=== PATIENT | male | born 1990 ===

== ENCOUNTER 2016-06-08 17:37 | Emergency (ER) | payer MEDICARE, OTHER ==
[2016-06-08 17:37] VITALS: BMI 24.5
[2016-06-08 17:48] VITALS: BP 135/81; PULSE 124; RESP 20; TEMP 98.1; O2SAT 96
--- NOTE | 2016-06-08 18:29 | C.PDOC ---
History Of Present Illness 26 year old male with a long history of psychiatric disorders, presents to the ER with c/o rhinorrhea and a subjective fever for the last 2 days. Pt notes symptoms has decreased, but denies homicidal or suicidal ideation, vomiting, nausea, diarrhea, sore throat, or any other complaints. Pt denies taking medicine for complaint. Time Seen by Provider: 06/08/16 18:06 Chief Complaint (Nursing): Fever History Per: Patient History/Exam Limitations: no limitations Onset/Duration Of Symptoms: Days Current Symptoms Are (Timing): Still Present Associated Symptoms: Fever. denies: Sore Throat, Vomiting, Diarrhea Past Medical History Reviewed: Historical Data, Nursing Documentation, Vital Signs Vital Signs: Last Vital Signs Temp 98.1 F 06/08/16 17:44 Pulse 124 H 06/08/16 17:44 Resp 20 06/08/16 17:44 BP 135/81 06/08/16 17:44 Pulse Ox 96 06/08/16 20:15 - Medical History PMH: Anxiety, Asthma, Bipolar Disorder, Depression, Schizophrenia Surgical History: - [facility] Procedures FAMILY THERAPY (03/31/14) GROUP PSYCHOTHERAPY (05/18/16) INDIVID PSYCHOTHERAP NEC (05/31/14) INDIVIDUAL PSYCHOTHERAPY, BEHAVIORAL (05/18/16) INDIVIDUAL PSYCHOTHERAPY, COGNITIVE-BEHAVIORAL (12/16/15) INDIVIDUAL PSYCHOTHERAPY, SUPPORTIVE (07/08/15) INJECT/INFUSE NEC (01/08/14) OTHER GROUP THERAPY (05/31/14) PSYCHIA INTERV/EVAL NEC (03/20/14) Family History: States: Unknown Family Hx - Social History Hx Tobacco Use: Yes Hx Alcohol Use: No Hx Substance Use: Yes Review Of Systems Except As Marked, All Systems Reviewed And Found Negative. Constitutional: Positive for: Fever ENT: Positive for: Other (Rhinorrhea. Poor oral health) Psych: Negative for: Suicidal ideation Physical Exam - Physical Exam Appears: Non-toxic, No Acute Distress Skin: Warm, Dry Head: Atraumatic, Normacephalic Nose: Discharge (Clear Rhinorrhea) Teeth: Other (Multiple cavities) Throat: Normal, No Erythema, No Exudate Cardiovascular: Rhythm Regular Respiratory: Normal Breath Sounds, No Rales, No Rhonchi, No Wheezing ED Course And Treatment O2 Sat by Pulse Oximetry: 96 (Room air) Pulse Ox Interpretation: Normal Progress Note: On reassessment, patient is resting comfortably, and is in no acute distress. Patient was instructed to follow up with physician/clinic in 1- 2 days for further evaluation. Medical Decision Making Medical Decision Making: No indication for PES intervention Plan dc home symptomatic tx Clinic f/u Disposition Counseled Patient/Family Regarding: Diagnosis, Need For Followup - Disposition Disposition: HOME/ ROUTINE Disposition Time: 18:30 Condition: FAIR Prescriptions: Oxymetazoline 0.05% [Afrin 0.05%] 2 puff NS Q12H PRN #1 bottle PRN Reason: .nasal congestion Instructions: Viral Syndrome (ED) - Clinical Impression Clinical Impression: URI (upper respiratory infection) - Scribe Statement The provider has reviewed the documentation as recorded by the Scribe Ros montague All medical record entries made by the Scribe were at my direction and personally dictated by me. I have reviewed the chart and agree that the record accurately reflects my personal performance of the history, physical exam, medical decision making, and the department course for this patient. I have also personally directed, reviewed, and agree with the discharge instructions and disposition.
== END 2016-06-08 18:42 | disposition home or self-care (01) ==
LOC: C.ER 17:37
DX: J06.9 Acute upper respiratory infection, unspecified (principal); Z72.0 Tobacco use

== ENCOUNTER 2016-07-08 19:12 | Emergency (ER) | payer MEDICARE, OTHER, MEDICAID ==
[2016-07-08 19:13] VITALS: BMI 24.5
[2016-07-08 19:18] VITALS: BP 132/75; PULSE 78; RESP 20; TEMP 97.4; O2SAT 98
--- NOTE | 2016-07-08 19:27 | C.PDOC ---
History Of Present Illness The patient, a 26y/o male, presents to the ED via ambulance for psychiatric evaluation. Patient was involved in a verbal confrontation with his mother earlier today and police were called. The police referred patient to EMS and he now presents for further evaluation. Patient has a long history of schizophrenia and is currently in an outpatient psychiatric program with good compliance. Patient is calm and cooperative in the ED and denies suicidal/ homicidal ideation at this time. Time Seen by Provider: 07/08/16 19:23 Chief Complaint (Nursing): Psychiatric Evaluation History Per: Patient, EMS History/Exam Limitations: no limitations Onset/Duration Of Symptoms: Hrs Current Symptoms Are (Timing): Still Present Suicide/Self Injury Attempted (Context): None Associated Symptoms: denies: Suicidal Thoughts, Suicidal Plan Involuntary Hold By: None Recent travel outside of the [place]: No Additional History Per: Patient, EMS Past Medical History Reviewed: Historical Data, Nursing Documentation, Vital Signs Vital Signs: Last Vital Signs Temp 97.4 F L 07/08/16 19:14 Pulse 78 07/08/16 19:14 Resp 20 07/08/16 19:14 BP 132/75 07/08/16 19:14 Pulse Ox 98 07/08/16 19:40 - Medical History PMH: Anxiety, Asthma, Bipolar Disorder, Depression, Schizophrenia Denies: Diabetes, Hepatitis, HIV, HTN, Chronic Kidney Disease, Seizures, Sexually Transmitted Disease Surgical History: No Surg Hx - [facility] Procedures FAMILY THERAPY (03/31/14) GROUP PSYCHOTHERAPY (05/18/16) INDIVID PSYCHOTHERAP NEC (05/31/14) INDIVIDUAL PSYCHOTHERAPY, BEHAVIORAL (05/18/16) INDIVIDUAL PSYCHOTHERAPY, COGNITIVE-BEHAVIORAL (12/16/15) INDIVIDUAL PSYCHOTHERAPY, SUPPORTIVE (07/08/15) INJECT/INFUSE NEC (01/08/14) OTHER GROUP THERAPY (05/31/14) PSYCHIA INTERV/EVAL NEC (03/20/14) Family History: States: Unknown Family Hx - Social History Hx Tobacco Use: Yes Hx Alcohol Use: No Hx Substance Use: Yes - Immunization History Hx Tetanus Toxoid Vaccination: No Hx Influenza Vaccination: No Hx Pneumococcal Vaccination: No Review Of Systems Except As Marked, All Systems Reviewed And Found Negative. Psych: Positive for: Other (+psych evaluation ). Negative for: Suicidal ideation Physical Exam - Physical Exam Appears: Non-toxic, No Acute Distress, Other (calm and cooperative ) Skin: Normal Color, Warm, Dry Head: Atraumatic, Normacephalic Eye(s): bilateral: Normal Inspection, EOMI Oral Mucosa: Moist Neck: Supple Chest: Symmetrical, No Deformity, No Tenderness Cardiovascular: Rhythm Regular Respiratory: Normal Breath Sounds Extremity: Normal ROM, Capillary Refill (less than 2 seconds ) Neurological/Psych: Oriented x3, Normal Speech, Normal Cognition Gait: Steady ED Course And Treatment O2 Sat by Pulse Oximetry: 98 (on RA) Pulse Ox Interpretation: Normal Medical Decision Making Medical Decision Making: BASELINE Schizo, normal reaction to an argument w his Mom Declines eval and psych eval ok to d/c home. opt program already in place w [facility]. Disposition Doctor Will See Patient In The: Office Counseled Patient/Family Regarding: Studies Performed, Diagnosis - Disposition Referrals: [facility] [Outside] [facility] [Outside] Disposition: HOME/ ROUTINE Disposition Time: 19:27 Condition: GOOD Additional Instructions: avoid verbal and physical confrontation Follow-up in your outpatient psychiatric program as usual. Instructions: Schizophrenia (ED), Anxiety (ED) - Clinical Impression Clinical Impression: Schizophrenia - Scribe Statement The provider has reviewed the documentation as recorded by the Scribe (Paola Montana) Provider Attestation: All medical record entries made by the Scribe were at my direction and personally dictated by me. I have reviewed the chart and agree that the record accurately reflects my personal performance of the history, physical exam, medical decision making, and the department course for this patient. I have also personally directed, reviewed, and agree with the discharge instructions and disposition.
== END 2016-07-08 19:42 | disposition home or self-care (01) ==
LOC: C.ER 19:12
DX: F20.9 Schizophrenia, unspecified (principal)

== ENCOUNTER 2017-10-31 14:02 | Emergency (ER) | payer MEDICARE, OTHER ==
[2017-10-31 14:02] VITALS: BMI 25.0
[2017-10-31 14:44] LABS: BASO % 0.1 % (0.0-2.0); EOS # 0.1 K/uL (0.0-0.7); EOS % 1.4 % (0.0-4.0); HEMOGLOBIN 14.6 g/dL (12.0-18.0); LYMPH # 1.9 K/uL (1.0-4.3); LYMPH % 20.3 % (20.0-40.0); MEAN CELL VOLUME 92.6 fL (80.0-94.0); MEAN CORPUSCULAR HEMOGLOBIN 33.1 pg (27.0-31.0); MEAN CORPUSCULAR HGB CONC 35.7 g/dL (33.0-37.0); MEAN PLATELET VOLUME 8.9 fL (7.2-11.7); MONO # 0.9 K/uL (0.0-0.8); MONO % 9.6 % (0.0-10.0); NEUT # 6.4 K/uL (1.8-7.0); NEUT % 68.6 % (50.0-75.0); NRBC % 0.2 % (0.0-2.0); RBC 4.41 Mil/uL (4.40-5.90); RED CELL DISTRIBUTION WIDTH 13.6 % (11.5-14.5); WHITE BLOOD COUNT 9.3 K/uL (4.8-10.8)
[2017-10-31 14:52] LABS: URINE BILIRUBIN NEGATIVE (NEGATIVE); URINE BLOOD NEGATIVE (NEGATIVE); URINE CLARITY Clear (Clear); URINE COLOR Yellow (YELLOW); URINE GLUCOSE (UA) NORMAL (Normal); URINE LEUKOCYTE ESTERASE NEG Leu/uL (Negative); URINE PROTEIN NEGATIVE (NEGATIVE); URINE UROBILINOGEN NORMAL mg/dL (0.2-1.0)
[2017-10-31 14:58] LABS: ALB/GLOB RATIO 1.4 (1.0-2.1); ALBUMIN 4.3 g/dL (3.5-5.0); ALT/SGPT 37 U/L (21-72); AST/SGOT 22 U/L (17-59); BLOOD UREA NITROGEN 7 mg/dL (9-20); GFR AFRICAN-AMERICAN > 60; GFR NON-AFRICAN AMERICAN > 60
[2017-10-31 15:11] LABS: BARBITURATES, UR NEGATIVE (NEGATIVE); BENZODIAZEPINES, UR NEGATIVE (NEGATIVE); OPIATES, UR NEGATIVE (NEGATIVE); PHENCYCLIDINE, UR NEGATIVE (NEGATIVE)
--- NOTE | 2017-10-31 15:21 | C.PDOC ---
History Of Present Illness 27yo male with history of schizoaffective disorder, brought to ER by EMS accompanied by his mom as she states the patient was aggressive at home and threatened to kill her. Patient states he is in the ER as "they are trying to take me to the dentist." Patient does not answer questions when asked and is not able to provide and HPI or ROS. Time Seen by Provider: 10/31/17 14:09 Chief Complaint (Nursing): Psychiatric Evaluation History Per: Family History/Exam Limitations: clinical condition Past Medical History Reviewed: Historical Data, Nursing Documentation, Vital Signs Vital Signs: Last Vital Signs Temp 99.5 F 10/31/17 21:42 Pulse 109 H 10/31/17 21:42 Resp 20 10/31/17 21:42 BP 152/87 H 10/31/17 21:42 Pulse Ox 100 10/31/17 22:50 - Medical History PMH: Anxiety, Asthma, Bipolar Disorder, Depression, Schizophrenia Denies: Diabetes, Hepatitis, HIV, HTN, Chronic Kidney Disease, Seizures, Sexually Transmitted Disease Surgical History: No Surg Hx - [facility] Procedures FAMILY THERAPY (03/31/14) GROUP PSYCHOTHERAPY (05/18/16) INDIVID PSYCHOTHERAP NEC (05/31/14) INDIVIDUAL PSYCHOTHERAPY, BEHAVIORAL (05/18/16) INDIVIDUAL PSYCHOTHERAPY, COGNITIVE-BEHAVIORAL (12/16/15) INDIVIDUAL PSYCHOTHERAPY, SUPPORTIVE (07/08/15) INJECT/INFUSE NEC (01/08/14) OTHER GROUP THERAPY (05/31/14) PSYCHIA INTERV/EVAL NEC (03/20/14) Family History: States: Unknown Family Hx - Social History Hx Tobacco Use: Yes Hx Alcohol Use: Yes Hx Substance Use: Yes - Immunization History Hx Tetanus Toxoid Vaccination: No Hx Influenza Vaccination: No Hx Pneumococcal Vaccination: No Review Of Systems Review Of Systems: ROS cannot be obtained secondary to pt's inabilty to answer questions. Physical Exam - Physical Exam Appears: Non-toxic Skin: Normal Color Head: Atraumatic, Normacephalic Eye(s): bilateral: Normal Inspection Neck: Normal ROM, Supple Chest: Symmetrical Cardiovascular: Rhythm Regular Respiratory: Normal Breath Sounds Extremity: Normal ROM Neurological/Psych: Oriented x3, Other (flat affect; not answering questions) ED Course And Treatment - Laboratory Results Result Diagrams: 10/31/17 14:40 10/31/17 14:40 Lab Interpretation: No Acute Changes O2 Sat by Pulse Oximetry: 100 (RA) Pulse Ox Interpretation: Normal Progress Note: Patient remains quiet and stable in ED. He will remain in the ED overnight for evaluation by clinician from [facility] in the morning. Medical Decision Making Medical Decision Making: Plan: * Labs * Urinalysis * UDS * 1:1 observation Disposition - Disposition Disposition Time: 00:45 Condition: STABLE Forms: [facility] (Iranian) - Clinical Impression Clinical Impression: Schizoaffective disorder, Oppositional defiant disorder - Scribe Statement The provider has reviewed the documentation as recorded by the Rosaurae Brooklyn Delgado Provider Attestation: All medical record entries made by the Ferminibe were at my direction and personally dictated by me. I have reviewed the chart and agree that the record accurately reflects my personal performance of the history, physical exam, medical decision making, and the department course for this patient. I have also personally directed, reviewed, and agree with the discharge instructions and disposition. Physician Patient Turnover Patient Signed Over To: Lisandra Marmolejo Handoff Comments: pending evaluation by clinician from [facility].
[2017-11-01 10:54] VITALS: RESP 16; O2SAT 97
[2017-11-01 14:39] VITALS: BP 115/76; PULSE 76; TEMP 98.4
== END 2017-11-01 14:20 | disposition home or self-care (01) ==
LOC: C.ER 14:02
DX: F25.9 Schizoaffective disorder, unspecified (principal); F91.3 Oppositional defiant disorder; F84.0 Autistic disorder
CPT/HCPCS: 80053; 81001; 85025; 99285; G0480

== ENCOUNTER 2017-11-03 14:06 | Emergency (ER) | payer MEDICARE, OTHER ==
[2017-11-03 14:06] VITALS: BMI 25.0
== END 2017-11-03 14:45 | disposition left against medical advice (07) ==
LOC: C.ER 14:06
DX: Z02.89 Encounter for other administrative examinations (principal)

== ENCOUNTER 2017-12-23 10:00 | Emergency (ER) | payer MEDICARE, OTHER ==
[2017-12-23 10:00] VITALS: BMI 25.0
[2017-12-23 10:09] VITALS: RESP 20; O2SAT 98
--- NOTE | 2017-12-23 10:29 | C.PDOC ---
History Of Present Illness 27 year old male with PMHx of autism presents to the ED BIBA for aggressive behavior. As per mother, she called 911 because patient was acting aggressive at home. When patient was asked why he came to the ED, he stated he hates medication. He denies any physical complaints. Chief Complaint (Nursing): Psychiatric Evaluation History Per: Patient, Family (Mother) History/Exam Limitations: no limitations Onset/Duration Of Symptoms: Hrs Current Symptoms Are (Timing): Gone Suicide/Self Injury Attempted (Context): None Modifying Factor(s): None Associated Symptoms: Agitation Additional History Per: EMS Past Medical History Reviewed: Historical Data, Nursing Documentation, Vital Signs Vital Signs: Last Vital Signs Temp 98.6 F 12/23/17 10:04 Pulse 98 H 12/23/17 10:04 Resp 20 12/23/17 10:04 BP 131/86 12/23/17 10:04 Pulse Ox 98 12/23/17 10:04 - Medical History PMH: Anxiety, Asthma, Bipolar Disorder, Depression, Schizophrenia Denies: Diabetes, Hepatitis, HIV, HTN, Chronic Kidney Disease, Seizures, Sexually Transmitted Disease Surgical History: No Surg Hx - [facility] Procedures FAMILY THERAPY (03/31/14) GROUP PSYCHOTHERAPY (05/18/16) INDIVID PSYCHOTHERAP NEC (05/31/14) INDIVIDUAL PSYCHOTHERAPY, BEHAVIORAL (05/18/16) INDIVIDUAL PSYCHOTHERAPY, COGNITIVE-BEHAVIORAL (12/16/15) INDIVIDUAL PSYCHOTHERAPY, SUPPORTIVE (07/08/15) INJECT/INFUSE NEC (01/08/14) OTHER GROUP THERAPY (05/31/14) PSYCHIA INTERV/EVAL NEC (03/20/14) Family History: States: Unknown Family Hx - Social History Hx Tobacco Use: Yes Hx Alcohol Use: No Hx Substance Use: No - Immunization History Hx Tetanus Toxoid Vaccination: No Hx Influenza Vaccination: No Hx Pneumococcal Vaccination: No Review Of Systems Except As Marked, All Systems Reviewed And Found Negative. Psych: Positive for: Other (aggressive behavior ) Physical Exam - Physical Exam Appears: Non-toxic, Other (Calm ) Skin: Warm, Dry Head: Normacephalic Eye(s): bilateral: Normal Inspection Nose: Normal Oral Mucosa: Moist Neck: Normal ROM Chest: Symmetrical Cardiovascular: Rhythm Regular Respiratory: Normal Breath Sounds Extremity: Bilateral: Atraumatic, Normal Color And Temperature, Normal ROM Neurological/Psych: Oriented x3, Normal Speech Gait: Steady ED Course And Treatment O2 Sat by Pulse Oximetry: 98 (RA) Pulse Ox Interpretation: Normal Medical Decision Making Medical Decision Making: Impression: Autism with aggressive behavior Orders: Psych evaluation Disposition - Disposition Referrals: [facility] [place]] [facility] [Outside] [facility] [place] [Outside] Disposition: HOME/ ROUTINE Disposition Time: 13:22 Condition: GOOD Instructions: Autism Spectrum Disorder Forms: [facility] (Tajik) - Clinical Impression Clinical Impression: Autism - Scribe Statement The provider has reviewed the documentation as recorded by the Scribe Lena Noble All medical record entries made by the Scribe were at my direction and personally dictated by me. I have reviewed the chart and agree that the record accurately reflects my personal performance of the history, physical exam, medical decision making, and the department course for this patient. I have also personally directed, reviewed, and agree with the discharge instructions and disposition.
[2017-12-23 12:36] VITALS: BP 135/85; PULSE 89; TEMP 97.9
== END 2017-12-23 13:21 | disposition home or self-care (01) ==
LOC: C.ER 10:00
DX: F84.0 Autistic disorder (principal)

== ENCOUNTER 2017-12-24 14:13 | Emergency (ER) | payer MEDICARE, OTHER ==
[2017-12-24 14:14] VITALS: BMI 25.0
== END 2017-12-24 15:23 | disposition left against medical advice (07) ==
LOC: C.ER 14:13
DX: Z02.89 Encounter for other administrative examinations (principal); F41.9 Anxiety disorder, unspecified

== ENCOUNTER 2018-01-01 10:22 | Emergency (ER) | payer MEDICARE, OTHER ==
[2018-01-01 10:22] VITALS: BMI 25.0
--- NOTE | 2018-01-01 10:56 | C.PDOC ---
History Of Present Illness 12/23/17 20:05 --Patient was evaluated by crisis. Diagnoses are autism spectrum disorder and schizoaffective disorder as per Dr. Harmon. Time Seen by Provider: 01/01/18 10:55 Chief Complaint (Nursing): Psychiatric Evaluation Past Medical History Vital Signs: Last Vital Signs Temp 98.7 F 01/01/18 10:42 Pulse 99 H 01/01/18 10:42 Resp 17 01/01/18 10:42 BP 115/78 01/01/18 10:42 Pulse Ox 100 01/01/18 10:42 - Medical History PMH: Anxiety, Asthma, Bipolar Disorder, Depression, Schizophrenia Denies: Diabetes, Hepatitis, HIV, HTN, Chronic Kidney Disease, Seizures, Sexually Transmitted Disease Surgical History: - [facility] Procedures FAMILY THERAPY (03/31/14) GROUP PSYCHOTHERAPY (05/18/16) INDIVID PSYCHOTHERAP NEC (05/31/14) INDIVIDUAL PSYCHOTHERAPY, BEHAVIORAL (05/18/16) INDIVIDUAL PSYCHOTHERAPY, COGNITIVE-BEHAVIORAL (12/16/15) INDIVIDUAL PSYCHOTHERAPY, SUPPORTIVE (07/08/15) INJECT/INFUSE NEC (01/08/14) OTHER GROUP THERAPY (05/31/14) PSYCHIA INTERV/EVAL NEC (03/20/14) Family History: States: Unknown Family Hx - Social History Hx Tobacco Use: Yes Hx Alcohol Use: Yes Hx Substance Use: Yes - Immunization History Hx Tetanus Toxoid Vaccination: No Hx Influenza Vaccination: No Hx Pneumococcal Vaccination: No ED Course And Treatment O2 Sat by Pulse Oximetry: 100 Progress - Data Reviewed Data Reviewed: Old records Disposition - Disposition
[2018-01-01 12:30] LABS: BASO % 0.2 % (0.0-2.0); EOS # 0.1 K/uL (0.0-0.7); EOS % 1.3 % (0.0-4.0); HEMOGLOBIN 15.8 g/dL (12.0-18.0); LYMPH # 2.6 K/uL (1.0-4.3); LYMPH % 24.4 % (20.0-40.0); MEAN CELL VOLUME 93.3 fL (80.0-94.0); MEAN CORPUSCULAR HEMOGLOBIN 32.5 pg (27.0-31.0); MEAN CORPUSCULAR HGB CONC 34.8 g/dL (33.0-37.0); MEAN PLATELET VOLUME 8.8 fL (7.2-11.7); MONO # 1.1 K/uL (0.0-0.8); MONO % 10.3 % (0.0-10.0); NEUT # 6.8 K/uL (1.8-7.0); NEUT % 63.8 % (50.0-75.0); RBC 4.86 Mil/uL (4.40-5.90); RED CELL DISTRIBUTION WIDTH 13.5 % (11.5-14.5); WHITE BLOOD COUNT 10.6 K/uL (4.8-10.8)
[2018-01-01 12:42] LABS: ALB/GLOB RATIO 1.3 (1.0-2.1); ALBUMIN 4.9 g/dL (3.5-5.0); ALT/SGPT 30 U/L (21-72); AST/SGOT 30 U/L (17-59); BLOOD UREA NITROGEN 11 mg/dL (9-20); CALCIUM 9.2 mg/dl (8.6-10.4); GFR NON-AFRICAN AMERICAN > 60
--- NOTE | 2018-01-01 13:14 | C.PDOC ---
History Of Present Illness 27 y/o male with PMHx of schizophrenia and bipolar disorder brought in by ambulance accompanied by mother for psych evaluation. As per mother patient has been having combative episodes, with increased aggression, throwing objects at home. Mom reports that patients medication was changed recently and does not work as well as previous one. Mom also noticed some tremors for the past few weeks. Currently he is taking Haldol 10 mg daily, last dose was last night. At present time, patient appears comfortable, cooperative, in no apparent distress. Time Seen by Provider: 01/01/18 10:55 Chief Complaint (Nursing): Psychiatric Evaluation History Per: Patient History/Exam Limitations: no limitations Onset/Duration Of Symptoms: Days Current Symptoms Are (Timing): Still Present Modifying Factor(s): None Involuntary Hold By: None Additional History Per: Family (Mother) Past Medical History Reviewed: Historical Data, Nursing Documentation, Vital Signs Vital Signs: Last Vital Signs Temp 98.7 F 01/01/18 10:42 Pulse 99 H 01/01/18 10:42 Resp 17 01/01/18 10:42 BP 115/78 01/01/18 10:42 Pulse Ox 100 01/01/18 10:42 - Medical History PMH: Anxiety, Asthma, Bipolar Disorder, Depression, Schizophrenia Denies: Diabetes, Hepatitis, HIV, HTN, Chronic Kidney Disease, Seizures, Sexually Transmitted Disease Surgical History: - [facility] Procedures FAMILY THERAPY (03/31/14) GROUP PSYCHOTHERAPY (05/18/16) INDIVID PSYCHOTHERAP NEC (05/31/14) INDIVIDUAL PSYCHOTHERAPY, BEHAVIORAL (05/18/16) INDIVIDUAL PSYCHOTHERAPY, COGNITIVE-BEHAVIORAL (12/16/15) INDIVIDUAL PSYCHOTHERAPY, SUPPORTIVE (07/08/15) INJECT/INFUSE NEC (01/08/14) OTHER GROUP THERAPY (05/31/14) PSYCHIA INTERV/EVAL NEC (03/20/14) Family History: States: Unknown Family Hx - Social History Hx Tobacco Use: Yes Hx Alcohol Use: Yes Hx Substance Use: Yes - Immunization History Hx Tetanus Toxoid Vaccination: No Hx Influenza Vaccination: No Hx Pneumococcal Vaccination: No Review Of Systems Except As Marked, All Systems Reviewed And Found Negative. Constitutional: Negative for: Fever Respiratory: Negative for: Shortness of Breath Gastrointestinal: Negative for: Vomiting, Abdominal Pain Neurological: Negative for: Weakness, Dizziness Psych: Positive for: Other (Increased aggression/combative episodes). Negative for: Suicidal ideation (or homicidal) Physical Exam - Physical Exam Appears: Well, Non-toxic, No Acute Distress Skin: Normal Color, Warm, No Rash, No Ecchymosis Head: Normacephalic Eye(s): bilateral: PERRL Nose: No Flaring, No Discharge Oral Mucosa: Moist Throat: No Erythema, No Drooling Neck: Trachea Midline, Supple Chest: Symmetrical, No Deformity, No Tenderness Cardiovascular: Rhythm Regular, No Murmur, No JVD Respiratory: No Decreased Breath Sounds, No Accessory Muscle Use, No Rales, No Rhonchi, No Stridor, No Wheezing Gastrointestinal/Abdominal: Soft, No Tenderness, No Distention Extremity: Normal ROM, No Deformity, No Swelling Extremity: Bilateral: Atraumatic, Normal Color And Temperature, Normal ROM Neurological/Psych: Oriented x3, Normal Speech, Normal Motor, Normal Sensation, Normal Reflexes Gait: Steady ED Course And Treatment - Laboratory Results Result Diagrams: 01/01/18 12:18 01/01/18 12:18 Lab Interpretation: No Acute Changes O2 Sat by Pulse Oximetry: 100 (RA) Pulse Ox Interpretation: Normal Progress Note: Blood work and urine sent. pony worker will see patient and evaluate. Pt was OBS in ED for 4 hours and remained tsable during the ED evaluation. Blood work review and appears normal. Pt was seen by Crisis, case discussed with [id number] and patient was psychiatricaly cleared for discharge and outpt follow up now. As per crisis, " mom refused to sign paper but patient will be follow up by outpt services/with home visits". Pt is stable for discharge. Disposition Counseled Patient/Family Regarding: Studies Performed, Diagnosis, Need For Followup - Disposition [facility] [[facility]] Disposition: HOME/ ROUTINE Disposition Time: 16:55 Condition: STABLE Additional Instructions: Follow up with Psychiatrist in as scheduled for further evaluation and treatment return if any new changes. Instructions: Schizoaffective Disorder Forms: [facility] (Finnish) - Clinical Impression Clinical Impression: Schizoaffective disorder, bipolar type - PA / SALES AGENT [employer] REPORT SERVICE / Resident Statement MD/DO has reviewed & agrees with the documentation as recorded. - Scribe Statement The provider has reviewed the documentation as recorded by the Scribe (Lorraine Jensen) All medical record entries made by the Scribe were at my direction and personally dictated by me. I have reviewed the chart and agree that the record accurately reflects my personal performance of the history, physical exam, medical decision making, and the department course for this patient. I have also personally directed, reviewed, and agree with the discharge instructions and disposition.
[2018-01-01 14:36] LABS: URINE BILIRUBIN NEGATIVE (NEGATIVE); URINE BLOOD NEGATIVE (NEGATIVE); URINE CLARITY Clear (Clear); URINE COLOR Yellow (YELLOW); URINE GLUCOSE (UA) NORMAL (Normal); URINE LEUKOCYTE ESTERASE NEG Leu/uL (Negative); URINE PROTEIN NEGATIVE (NEGATIVE); URINE UROBILINOGEN NORMAL mg/dL (0.2-1.0)
[2018-01-01 14:50] LABS: BARBITURATES, UR NEGATIVE (NEGATIVE); BENZODIAZEPINES, UR NEGATIVE (NEGATIVE); OPIATES, UR NEGATIVE (NEGATIVE)
[2018-01-01 15:32] VITALS: RESP 16
[2018-01-01 16:17] LABS: PHENCYCLIDINE, UR NEGATIVE (NEGATIVE)
[2018-01-01 17:44] VITALS: BP 111/77; PULSE 95; TEMP 99.4; O2SAT 98
== END 2018-01-01 18:06 | disposition home or self-care (01) ==
LOC: C.ER 10:22
DX: F25.0 Schizoaffective disorder, bipolar type (principal)
CPT/HCPCS: 80053; 81001; 83735; 84100; 85025; 99285; G0480

== ENCOUNTER 2018-01-15 18:19 | Emergency (ER) | payer MEDICARE, OTHER ==
[2018-01-15 18:19] VITALS: BMI 25.0
[2018-01-15 18:34] VITALS: BP 131/84; PULSE 104; RESP 18; TEMP 97.8; O2SAT 100
== END 2018-01-15 18:36 | disposition left against medical advice (07) ==
LOC: C.ER 18:19
DX: Z02.89 Encounter for other administrative examinations (principal); Z00.8 Encounter for other general examination

== ENCOUNTER 2018-01-15 20:56 | Inpatient (IN) | payer MEDICARE, OTHER ==
[2018-01-15 20:56] VITALS: BMI 25.0
--- NOTE | 2018-01-15 22:47 | C.PDOC ---
History Of Present Illness 27 y/o autistic male, with a PMHx of schizoaffective disorder, brought in by mother for aggressive behavior. Mom notes patient has had an increasing number of aggressive episodes over the last month. He was recently admitted for similar symptoms to [facility] unit and discharged yesterday. However, mom states patient became aggressive again, prompting mom to bring him back to the ED. Patient denies any suicidal or homicidal ideation. He reports having a mild cough. Mom states that patient always mentions physical complaints and denies any psychiatric complaints. History mostly obtained via mother secondary to patients somewhat lack of cooperation. <Viky Brown - Last Filed: 01/16/18 16:21> <Kelsey Light - Last Filed: 01/16/18 04:43> History Per: Patient History/Exam Limitations: other (somewhat uncooperative) Onset/Duration Of Symptoms: Days, Intermittent Episodes Current Symptoms Are (Timing): Still Present Associated Symptoms: Agitation Additional History Per: Family (Mother) <Viky Brown - Last Filed: 01/16/18 16:21> Time Seen by Provider: 01/15/18 21:04 Chief Complaint (Nursing): Psychiatric Evaluation Past Medical History Vital Signs: Last Vital Signs Temp 99.0 F 01/16/18 01:00 Pulse 82 01/16/18 01:00 Resp 20 01/16/18 01:00 BP 122/81 01/16/18 01:00 Pulse Ox 100 01/16/18 01:00 - [facility] Procedures FAMILY THERAPY (03/31/14) GROUP PSYCHOTHERAPY (01/10/18) INDIVID PSYCHOTHERAP NEC (05/31/14) INDIVIDUAL PSYCHOTHERAPY, BEHAVIORAL (05/18/16) INDIVIDUAL PSYCHOTHERAPY, COGNITIVE-BEHAVIORAL (01/10/18) INDIVIDUAL PSYCHOTHERAPY, SUPPORTIVE (07/08/15) INJECT/INFUSE NEC (01/08/14) OTHER GROUP THERAPY (05/31/14) PSYCHIA INTERV/EVAL NEC (03/20/14) <Kelsey Light - Last Filed: 01/16/18 04:43> Reviewed: Historical Data, Nursing Documentation, Vital Signs Vital Signs: Last Vital Signs Temp Pulse 116 H 01/15/18 21:06 Resp 20 01/15/18 21:00 BP 129/83 01/15/18 21:06 Pulse Ox 95 01/15/18 21:06 - Medical History PMH: Anxiety, Asthma, Bipolar Disorder, Depression, Hypothyroidism, Schizophrenia Denies: Diabetes, Hepatitis, HIV, HTN, Chronic Kidney Disease, Seizures, Sexually Transmitted Disease Other PMH: Autism Surgical History: No Surg Hx - [facility] Procedures FAMILY THERAPY (03/31/14) GROUP PSYCHOTHERAPY (01/10/18) INDIVID PSYCHOTHERAP NEC (05/31/14) INDIVIDUAL PSYCHOTHERAPY, BEHAVIORAL (05/18/16) INDIVIDUAL PSYCHOTHERAPY, COGNITIVE-BEHAVIORAL (01/10/18) INDIVIDUAL PSYCHOTHERAPY, SUPPORTIVE (07/08/15) INJECT/INFUSE NEC (01/08/14) OTHER GROUP THERAPY (05/31/14) PSYCHIA INTERV/EVAL NEC (03/20/14) Family History: States: No Known Family Hx - Social History Hx Tobacco Use: Yes Hx Alcohol Use: Yes Hx Substance Use: Yes - Immunization History Hx Tetanus Toxoid Vaccination: No Hx Influenza Vaccination: No Hx Pneumococcal Vaccination: No <Viky Brown - Last Filed: 01/16/18 16:21> Review Of Systems Except As Marked, All Systems Reviewed And Found Negative. Constitutional: Negative for: Fever Cardiovascular: Negative for: Chest Pain Respiratory: Positive for: Cough. Negative for: Shortness of Breath Gastrointestinal: Positive for: Abdominal Pain. Negative for: Vomiting, Diarrhea Psych: Positive for: Other (Aggressive episodes). Negative for: Suicidal ideation (or homicidal) <Viky Brown - Last Filed: 01/16/18 16:21> Physical Exam - Physical Exam Appears: Non-toxic, No Acute Distress Skin: Warm, Dry Head: Atraumatic, Normacephalic Eye(s): bilateral: Normal Inspection Oral Mucosa: Moist Throat: No Erythema, No Exudate Neck: Normal ROM Chest: Symmetrical Cardiovascular: Rhythm Regular, No Murmur Respiratory: Normal Breath Sounds (Lungs clear bilaterally), No Rales, No Rhonchi, No Wheezing Gastrointestinal/Abdominal: Soft, No Tenderness, No Distention Extremity: Bilateral: Atraumatic, Normal Color And Temperature, Normal ROM Neurological/Psych: Oriented x3, Normal Motor, Normal Sensation, Other (Angry mood and affect) <Viky Brown - Last Filed: 01/16/18 16:21> ED Course And Treatment O2 Sat by Pulse Oximetry: 95 (RA) Pulse Ox Interpretation: Normal <Viky Brown - Last Filed: 01/16/18 16:21> Medical Decision Making Medical Decision Making: Patient evaluated by crisis, to be admitted to Dr. Powers, dx: autism spectrum <Kelsey Light - Last Filed: 01/16/18 04:43> Medical Decision Making: Impression: Aggressive behavior, Autism Plan: Labs from yesterday at [facility] reviewed, and were normal. Patient is medically stable for psychiatric eval and admission as necessary. Placed patient on 1:1 observation, awaiting crisis evaluation. <Viky Brown - Last Filed: 01/16/18 16:21> Disposition - Disposition Disposition Time: 04:20 <Kelsey Light - Last Filed: 01/16/18 04:43> <Viky Brown - Last Filed: 01/16/18 16:21> - Disposition Disposition: HOSPITALIZED Condition: GOOD - Clinical Impression Clinical Impression: Autism spectrum - Scribe Statement The provider has reviewed the documentation as recorded by the Kathleen Jensen Provider Attestation: All medical record entries made by the Ferminibe were at my direction and personally dictated by me. I have reviewed the chart and agree that the record accurately reflects my personal performance of the history, physical exam, medical decision making, and the department course for this patient. I have also personally directed, reviewed, and agree with the discharge instructions and disposition. <Viky Brown - Last Filed: 01/16/18 16:21> Physician Patient Turnover Patient Signed Over To: Kelsey Light Handoff Comments: Pending Crisis disposition <Viky Brown - Last Filed: 01/16/18 16:21>
--- NOTE | 2018-01-16 06:43 | PCM.BM ---
<Richard Helm - Last Filed: 01/16/18 06:41> Treatment Plan Problems - Problems identified on initial assessmt AGGRESSIVE BEHAVIOR Date Initiated: 01/16/18 Time Initiated: 06:10 Assessment reference: NA Status: Active Treatment assets and liabiliti Patient Assests: ADL independent, good support system Patient Liabilities: other (Patient is autistic. Seletively mute during assessment.) - Milieu Protocol Maintain good personal hygiene: daily Encourage regular showers, daily Remind patient to perform daily oral care, daily Assist patient to perform ADL's Maintain personal safety: every shift Educate patient to report safety concerns to staff, every shift Monitor environment for contraband/sharps Medication safety: Monitor for expected outcome, potential side effects: every shift, Assess barriers to learning: every shift, Assess readiness for medication education: every shift <Heldaio Gibbs - Last Filed: 01/16/18 12:21> - Diagnosis (1) Autism spectrum disorder Status: Acute Interventions: 01/16/18 12:21 * Assess/adjust medications daily and /or as needed * See patient on an individual basis 7x/week to assess symptoms of anxiety * Educate patient regarding benefits, side effects and risks of prescribed medications * <Susanne Orellana - Last Filed: 01/18/18 12:12> Family Contact Family involvement: Family/SO is involved Family contact: Telephone contact initiated by staff - Goals for Treatment Patient goals for treatment: Pt refused to attend meeting. Patient's family/SO goals for treatment: Patient's mother wants pt to attend DDD program at [facility] and patient's mother has guardianship over pt's care. Discharge/Continuing Care - Education Needs Education Needs: Patient Medication, Patient Diagnosis/Disease Process, Patient Coping Skills, Patient Placement options, Patient Community resources - Discharge Discharge Criteria: Free of agitation, Reduction of target symptoms Discharge to:: Home, With Family - Treatment Team Participation Discussed with Family/SO: Yes Was Patient/Family/SO present at Treatment Team Meeting: No (Patient refused to attend meeting)
--- NOTE | 2018-01-16 08:40 | RAD ---
Date of service: 01/15/2018 HISTORY: cough COMPARISON: Comparison chest 07/01/2025. FINDINGS: LUNGS: No active pulmonary disease. PLEURA: No significant pleural effusion identified, no pneumothorax apparent. CARDIOVASCULAR: Normal. OSSEOUS STRUCTURES: No significant abnormalities. VISUALIZED UPPER ABDOMEN: Normal. OTHER FINDINGS: None. IMPRESSION: No active disease.
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
--- NOTE | 2018-01-16 11:28 | CARD ---
APPROVED REPORT Date of service: 01/16/2018 EKG Measurement Heart [id number] <Conclusion> Normal sinus rhythm Normal ECG
[2018-01-16] MEDS: Divalproex 500 mg DR Tab PO SCH ×2 (11:53→17:46)
[2018-01-16] MEDS ORDERED: DiphenhydrAMINE 50 mg/ml Inj IM PRN (15:25)
[2018-01-17] MEDS: Levothyroxine 50 MCG TAB PO SCH (06:29)
[2018-01-17] MEDS: Divalproex 500 mg DR Tab PO SCH ×2 (09:57→17:41)
--- NOTE | 2018-01-17 10:42 | PCM.PYCHPN ---
Psychiatric Progress Note - Psychiatric Progress Note Patient seen today, length of contact: 16 min Patient Chief Complaint: I'm feeling okay. Problems Identified/Issues Discussed: Patient seen and evaluated, chart reviewed and discussed with the nurse. Pt remained somewhat slow, disorganized and internally preoccupied. He remained isolated and withdrawn, and confined to his room. As pe the staff, he remained calm and cooperative. Patient denies any auditory hallucinations, visual hallucinations, or any paranoia. Patient is compliant with medications and denies any side effects. Symptoms are improving but pt needs more time to stabilize. Support and psychoeducation given. Medication Change: Yes Medical Record Reviewed: Yes Mental Status Examination - Cognitive Function Orientation: Person, Place Memory: Impaired Attention: WNL Concentration: Poor Association: Loose Fund of Knowledge: WNL - Mood Mood: Anxious - Affect Affect: Constricted - Speech Speech: Soft - Formal Thought Process Formal Thought Process: Loosening of associations - Suicidal Ideation Suicidal Ideation: No - Homicidal Ideation Homicidal Ideation: No Goal/Treatment Plan - Goal/Treatment Plan Need for Continued Stay: Severe depression anxiety, Severe functional impairment Progress Toward Problem(s) and Goals/Treatment Plan: Schizoaffective disorder bipolar type Autistic spectrum disorder CBT Psychoeducation Supportive therapy, group therapy Depakote 500 mg by mouth twice a day Prolixin 5 mg by mouth twice a day Cogentin 1 mg by mouth twice a day Neurontin 300 mg by mouth 3 times a day Trazodone 50 mg by mouth daily at bedtime Klonopin 1 mg by mouth 3 times a day - Smoking Cessation Smoking Cessation Initiated: No
[2018-01-18] MEDS: Levothyroxine 50 MCG TAB PO SCH (06:14)
[2018-01-18] MEDS: Divalproex 500 mg DR Tab PO SCH ×2 (10:03→17:12)
[2018-01-19] MEDS: Levothyroxine 50 MCG TAB PO SCH (06:40)
[2018-01-19 06:50] VITALS: O2SAT 98
[2018-01-19] MEDS: Divalproex 500 mg DR Tab PO SCH ×2 (09:09→17:13)
[2018-01-20] MEDS: Levothyroxine 50 MCG TAB PO SCH (06:52)
[2018-01-20] MEDS: Divalproex 500 mg DR Tab PO SCH ×2 (09:25→17:35)
[2018-01-21] MEDS: Levothyroxine 50 MCG TAB PO SCH (06:17)
[2018-01-21] MEDS: Divalproex 500 mg DR Tab PO SCH ×2 (10:09→17:11)
[2018-01-22] MEDS: Levothyroxine 50 MCG TAB PO SCH (06:47)
[2018-01-22 07:21] VITALS: RESP 20; TEMP 97.5
[2018-01-22] MEDS: Divalproex 500 mg DR Tab PO SCH (10:04)
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
[2018-01-22 12:18] VITALS: BP 104/70; PULSE 96
== END 2018-01-22 13:15 | disposition home or self-care (01) | DRG 885 ==
LOC: C.ER 20:56 → C.5E 01-16 04:19
DX: F25.0 Schizoaffective disorder, bipolar type (principal); F84.0 Autistic disorder; E03.9 Hypothyroidism, unspecified; J45.909 Unspecified asthma, uncomplicated; Z87.891 Personal history of nicotine dependence

== ENCOUNTER 2018-03-02 15:09 | Emergency (ER) | payer MEDICARE, OTHER ==
[2018-03-02 15:10] VITALS: BMI 34.7
[2018-03-02 15:16] VITALS: BP 123/82; PULSE 99; TEMP 99.3; O2SAT 99
[2018-03-02 15:20] VITALS: RESP 17
--- NOTE | 2018-03-02 16:01 | C.PDOC ---
History Of Present Illness 28 y/o male pt with psych hx came in for evaluation in the ER. Pt reports he is not going to talk much and geo refusing to give more information. Crisis was called and they want a 1:1. Labs is suggested from crisis. Time Seen by Provider: 03/02/18 15:39 Chief Complaint (Nursing): Psychiatric Evaluation History Per: Patient History/Exam Limitations: other (refuse to give information) Onset/Duration Of Symptoms: Days Current Symptoms Are (Timing): Still Present Past Medical History Reviewed: Historical Data, Nursing Documentation, Vital Signs Vital Signs: Last Vital Signs Temp 99.3 F 03/02/18 15:16 Pulse 99 H 03/02/18 15:16 Resp 17 03/02/18 15:16 BP 123/82 03/02/18 15:16 Pulse Ox 99 03/02/18 15:16 - Medical History PMH: Anxiety, Asthma, Bipolar Disorder, Depression, Hypothyroidism, Schizophrenia Surgical History: - [facility] Procedures FAMILY THERAPY (03/31/14) GROUP PSYCHOTHERAPY (01/10/18) INDIVID PSYCHOTHERAP NEC (05/31/14) INDIVIDUAL PSYCHOTHERAPY, BEHAVIORAL (05/18/16) INDIVIDUAL PSYCHOTHERAPY, COGNITIVE-BEHAVIORAL (01/10/18) INDIVIDUAL PSYCHOTHERAPY, SUPPORTIVE (07/08/15) INJECT/INFUSE NEC (01/08/14) OTHER GROUP THERAPY (05/31/14) PSYCHIA INTERV/EVAL NEC (03/20/14) Family History: States: Unknown Family Hx - Social History Hx Tobacco Use: Yes Hx Alcohol Use: Yes Hx Substance Use: No - Immunization History Hx Tetanus Toxoid Vaccination: (unk) Hx Influenza Vaccination: (unk) Hx Pneumococcal Vaccination: (unk) Review Of Systems Except As Marked, All Systems Reviewed And Found Negative. Review Of Systems: ROS cannot be obtained secondary to pt's inabilty to answer questions. (refuse to speak) Physical Exam - Physical Exam Appears: Non-toxic, No Acute Distress, Other (uncooperative with exam) Skin: Warm, Dry Head: Normacephalic Eye(s): bilateral: Normal Inspection, EOMI ED Course And Treatment O2 Sat by Pulse Oximetry: 99 (RA) Pulse Ox Interpretation: Normal Medical Decision Making Medical Decision Making: Impression: psych pt Plans: -- chem labs -- blood work -- UA Disposition - Disposition Referrals: [facility] [place] [facility] [place] [facility] [Outside] [facility] [place] [Outside] Disposition: HOME/ ROUTINE Disposition Time: 17:11 Condition: GOOD Instructions: Autism Spectrum Disorder, Schizoaffective Disorder Forms: [employer] (Citizen [place]) - Clinical Impression Clinical Impression: Autism, Schizoaffective disorder - Scribe Statement The provider has reviewed the documentation as recorded by the Scribe Fournier Do Provider Attestation: All medical record entries made by the Scribe were at my direction and personally dictated by me. I have reviewed the chart and agree that the record accurately reflects my personal performance of the history, physical exam, medi jacquie decision making, and the department course for this patient. I have also personally directed, reviewed, and agree with the discharge instructions and disposition.
== END 2018-03-02 17:03 | disposition home or self-care (01) ==
LOC: C.ER 15:09
DX: F25.9 Schizoaffective disorder, unspecified (principal); F84.0 Autistic disorder